=== PATIENT | male | born 1965 | race Caucasian/White ===

== ENCOUNTER 2018-04-25 09:50 | Emergency (ER) | payer OTHER ==
[~2018-04-25] VITALS: Ht 172.7 cm; Wt 84.5 kg
[2018-04-25 09:53] VITALS: BP 150/79; PULSE 93; RESP 18; TEMP 98.3; O2SAT 95
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
== END 2018-04-25 12:12 | disposition home or self-care (01) ==
LOC: NEPD 09:50
DX: S39.012A Strain of muscle, fascia and tendon of lower back, initial encounter (principal); S16.1XXA Strain of muscle, fascia and tendon at neck level, initial encounter; I10 Essential (primary) hypertension; E11.9 Type 2 diabetes mellitus without complications; V43.52XA Car driver injured in collision with other type car in traffic accident, initial encounter
CPT/HCPCS: 72040; 72100; 99284; L0150